=== PATIENT | female | born 1995 | race Caucasian/White ===

== ENCOUNTER 2024-03-05 19:54 | Emergency (ER) | payer OTHER ==
[~2024-03-05] VITALS: Ht 170.2 cm; Wt 72.0 kg
[2024-03-05] VITALS (7 sets, daily range): BP systolic 115–139; BP diastolic 65–107
[2024-03-05] MEDS ORDERED: BACITRACIN BASE 15 GM TUBE TOP PRN (20:20)
[2024-03-05] MEDS ORDERED: IBUPROFEN 800 MG/TAB PO ONE (20:45)
[2024-03-05] MEDS ORDERED: Diph, Acellular Pertussis, Tet 0.5 ML/VIAL (Tdap) SDV IM ONE (21:25)
== END 2024-03-05 21:31 | disposition home or self-care (01) ==
LOC: ED 19:54
DX: T23.542A Corrosion of first degree of multiple left fingers (nail), including thumb, initial encounter (principal); T23.552A Corrosion of first degree of left palm, initial encounter; T23.541A Corrosion of first degree of multiple right fingers (nail), including thumb, initial encounter; T23.551A Corrosion of first degree of right palm, initial encounter; T54.91XA Toxic effect of unspecified corrosive substance, accidental (unintentional), initial encounter; Y93.H9 Activity, other involving exterior property and land maintenance, building and construction; Y92.008 Other place in unspecified non-institutional (private) residence as the place of occurrence of the external cause